=== PATIENT | male | born 1985 | race Caucasian/White ===

== ENCOUNTER 2018-06-29 09:33 | Observation (INO) ==
--- NOTE | 2018-06-29 10:03 | Emergency Department Note ---
Disposition Clinical Impression: Cellulitis of right foot Uncontrolled diabetes mellitus Qualifiers: Diabetes mellitus type: type 2 Glycemic state: with hyperglycemia Qualified Code(s): E11.65 - Type 2 diabetes mellitus with hyperglycemia Disposition: Admitted As Inpatient Condition: Fair Time of Disposition: 17:34 Wound/Laceration HPI - General Chief Complaint: ED Wound/Laceration Stated Complaint: open wound on Toe PCP sent Time Seen by Provider: 06/29/18 09:37 Source: patient Limitations: no limitations Nursing Notes Reviewed: Yes Vital Signs Reviewed: Yes - History of Present Illness HPI Narrative: 33-year-old male past medical history of type 2 diabetes currently on metformin and Lyrica presenting for a 2 day history of right great toe swelling with ulceration. Patient states that he noticed over the weekend that his right great toe appeared to be swollen and woke up the next morning with ulcer formation to the lateral aspect of the digit. Patient states that the swelling has increased and spread along the medial aspect of his foot and up his ankle into his crowe area. Patient then following up with outpatient PCP who sent the patient into the ED this morning for further evaluation. Patient is currently not on any antibiotics at this time. Patient states that he declines any pain medication beyond ibuprofen at this time. Patient admits to fever/chills for the past 2 days and states that he has had some shortness of breath associated with his pain but has no other concerns or complaints at this time. - Related Data Home Medications Medication Instructions Recorded Confirmed Pregabalin [Lyrica] 150 mg PO BID 12/28/17 06/29/18 Metformin HCl 500 mg PO BID 06/29/18 06/29/18 Ranitidine HCl [Acid Assembler Handbags] 150 mg PO BID 06/29/18 06/29/18 Allergies Allergy/AdvReac Type Severity Reaction Status Date / Time cephalexin [From Keflex] Allergy Hives Verified 06/29/18 12:21 Review of Systems: Constitutional: Admits to fever, chills Cardiovascular: Denies: chest pain Respiratory: Denies: dyspnea Gastrointestinal: Denies: abdominal pain, nausea, vomiting, Musculoskeletal: Denies: back pain, neck pain Neurological: Patient admits to chronic numbness and paresthesias in bilateral lower extremities due to diabetic neuropathy. Denies: headache, weakness Endocrine: Denies: fatigue All systems ED: reviewed and negative except as stated. Review of Systems: As Per HPI Past Medical History - Past Medical History Medical history: Reports: diabetes Surgical history: Reports: no surgical history Psychiatric history: Reports: anxiety - Social History Smoking Status: Never smoker Smokeless Tobacco Status: Yes Alcohol use: Reports: occasionally Drug use: Reports: none Physical Exam Constitutional: No acute distress, [id number], engaged to conversation, speech is fluid, answers questions appropriately Neuro: GCS 15, no overt focal neurological deficits Head: Atraumatic, normocephalic Eyes: Pupils equal, round and reactive to light, no scleral icterus, no conjunctival injection Neck: Trachea midline without deviation. Anterior neck is supple without swelling. *Chest: Symmetric chest wall rise *Heart: Cardiac rhythm and rate are regular with S1 and S2 , no S3 or S4 appreciated, no murmurs, gallops, rubs, or clicks. *Lungs: Lungs are clear to auscultation bilaterally, without accessory muscle use or prolonged expiratory phase. No wheezes, rhonchi or stridor appreciated. Abdomen: Abdomen is flat, soft to palpation, normal bowel sounds. No abdominal bruit auscultated. Non-distended, non-rigid, no organomegaly, no ascites appreciated. No pulsatile mass, no tenderness or guarding to palpation in all four quadrants, no rebound Extremities: Normal capillary refill without evidence of pedal edema, joint swelling or erythema. Pulses/motor/sensory intact in all 4 extremities. Psychiatric exam: Patient displays a normal affect and mood for the environment. No overt signs of hallucination. Integumentary: Patient's right great toe exhibits ulceration approximately 3 mm wide by 2 cm long going through the dermal and epidermal layers. There is noted transudate of the wound, wound culture has been sent along with anaerobic culture. There is erythema to the entirety of the right great toe which is spreading along the medial border of the foot to the medial malleoli to the ankle. Patient has 3+ pitting edema upon the medial aspect of his foot. Patient's area of erythema is exquisitely tender to palpation. - General Limitations: no limitations General appearance: alert, in no apparent distress Course Course Narrative: CBC, BMP Wound culture, anaerobic culture Blood culture lactate CT scan of the right foot with contrast Ibuprofen as per patient's request for the management of pain or discomfort. We will begin vancomycin and Zosyn here in the ED Patient will require admission to the hospital for IV antibiotic coverage Patient verbalizes his understanding and agreement with this plan. Vital Signs Temperature 98.3 F 06/29/18 09:41 Pulse Rate 101 06/29/18 09:41 Respiratory Rate 15 06/29/18 09:41 Blood Pressure 147/89 06/29/18 09:41 O2 Sat by Pulse Oximetry 100 06/29/18 09:41 Temperature 98.2 F 06/29/18 15:45 Pulse Rate 79 06/29/18 15:45 Respiratory Rate 16 06/29/18 15:45 Blood Pressure 125/80 06/29/18 15:45 O2 Sat by Pulse Oximetry 98 06/29/18 15:45 Oxygen Delivery Oxygen Delivery Room Air Wound/Laceration - MDM Narrative Medical decision making narrative: Patient laboratory, imaging negative for acute pathology Patient with hyperglycemia in ED given IV fluids and insulin Patient admitted hospitalist medicine service for further evaluation and management of cellulitis requiring IV antibiotics in the setting of diabetes with poor wound healing. Patient verbalizes understanding and agreement with this plan. Dr. Vaughn accepting. - Lab Data Lab results reviewed: Yes I reviewed the patient's lab results. Result diagrams: 06/30/18 04:44 06/29/18 10:36 Lab Results 06/29/18 06/29/18 06/29/18 Range/Units 10:31 10:31 10:36 WBC 12.5 H (4.3-11.1) K/mcL RBC 5.01 (4.19-5.50) M/mcL Hgb 15.1 (12.9-16.9) g/dL Hct 44.0 (37.5-50.1) % MCV 87.8 (83.0-100.0) fL MCH 30.1 (28.0-33.3) pg MCHC 34.3 (31.6-35.5) g/dL RDW 11.5 (11.5-14.5) % Plt Count 220 (140-400) K/mcL MPV 10.6 (9.4-12.4) fL Immature Gran % 0.4 (0-4) % Seg Neutrophils % 77.4 % Lymphocytes % 13.6 % Monocytes % 7.8 % Eosinophils % 0.5 % Basophils % 0.3 % Neutrophils # 9.7 H (1.6-8.9) K/mcL Lymphocytes # 1.7 (0.6-4.6) K/mcL Monocytes # 1.0 (0.0-1.3) K/mcL Eosinophils # 0.1 (0.0-0.6) K/mcL Basophils # 0.0 (0.0-0.2) K/mcL Sodium (136-145) mEq/L Potassium (3.5-5.1) mEq/L Chloride (98-107) mEq/L Carbon Dioxide (23-29) mEq/L BUN (6-20) mg/dL Creatinine (0.70-1.30) mg/dL Est GFR ( Amer) (> 60) Est GFR (Non-Af Amer) (> 60) BUN/Creatinine Ratio (6-26) Glucose (70-105) mg/dL Est Mean Plasma Glucose 298 mg/dl Hemoglobin A1c 12.0 H ( - 5.6) % Calculated Osmolality (280-300) Lactic Acid 1.3 (0.5-2.2) mmol/L Calcium (8.6-10.3) mg/dL 06/29/18 Range/Units 10:36 WBC (4.3-11.1) K/mcL RBC (4.19-5.50) M/mcL Hgb (12.9-16.9) g/dL Hct (37.5-50.1) % MCV (83.0-100.0) fL MCH (28.0-33.3) pg MCHC (31.6-35.5) g/dL RDW (11.5-14.5) % Plt Count (140-400) K/mcL MPV (9.4-12.4) fL Immature Gran % (0-4) % Seg Neutrophils % % Lymphocytes % % Monocytes % % Eosinophils % % Basophils % % Neutrophils # (1.6-8.9) K/mcL Lymphocytes # (0.6-4.6) K/mcL Monocytes # (0.0-1.3) K/mcL Eosinophils # (0.0-0.6) K/mcL Basophils # (0.0-0.2) K/mcL Sodium 135 L (136-145) mEq/L Potassium 3.8 (3.5-5.1) mEq/L Chloride 98 (98-107) mEq/L Carbon Dioxide 28 (23-29) mEq/L BUN 11 (6-20) mg/dL Creatinine 0.88 (0.70-1.30) mg/dL Est GFR ( Amer) > 60 (> 60) Est GFR (Non-Af Amer) > 60 (> 60) BUN/Creatinine Ratio 13 (6-26) Glucose 406 H (70-105) mg/dL Est Mean Plasma Glucose mg/dl Hemoglobin A1c ( - 5.6) % Calculated Osmolality 296 (280-300) Lactic Acid (0.5-2.2) mmol/L Calcium 9.4 (8.6-10.3) mg/dL - Radiology Data Radiology results reviewed: Yes I reviewed the patient's radiology results. Lower Extremity CT 06/29/18 09:55 IMPRESSION: Open skin wound with soft tissue swelling/induration of the medial plantar aspect of the 1st digit without osseous changes. D/ / Michael Sanchez / Michael Sanchez Interpreting Provider: Michael Sanchez
[2018-06-29] MEDS ORDERED: Piperacillin/Tazobactam 3.375 GM in 0.9 % Sodium Chloride Mini Bag 100 ML IVPB ONE (10:08)
[2018-06-29] MEDS ORDERED: Ibuprofen 600 MG TABLET PO ONE (10:14)
--- NOTE | 2018-06-29 10:25 | Emergency Department Note ---
Disposition Clinical Impression: Cellulitis of right foot Uncontrolled diabetes mellitus Qualifiers: Diabetes mellitus type: type 2 Glycemic state: with hyperglycemia Qualified Code(s): E11.65 - Type 2 diabetes mellitus with hyperglycemia Disposition: Admitted As Inpatient Condition: Fair Time of Disposition: 13:32 General Adult HPI - General Chief complaint: ED Wound/Laceration Stated complaint: open wound on Toe PCP sent Time Seen by Provider: 06/29/18 09:37 Source: patient Limitations: no limitations - History of Present Illness Pain Scale: 9 - Related Data Home Medications Medication Instructions Recorded Confirmed Pregabalin [Lyrica] 150 mg PO BID 12/28/17 06/29/18 Metformin HCl 500 mg PO BID 06/29/18 06/29/18 Ranitidine HCl [Acid Equipment Engineer] 150 mg PO BID 06/29/18 06/29/18 Allergies Allergy/AdvReac Type Severity Reaction Status Date / Time cephalexin [From Keflex] Allergy Hives Verified 06/29/18 12:21 Past Medical History - Past Medical History Medical history: Reports: diabetes Surgical history: Reports: no surgical history Psychiatric history: Reports: anxiety - Social History Smoking Status: Never smoker Smokeless Tobacco Status: Yes Alcohol use: Reports: occasionally Drug use: Reports: none Physical Exam - General Limitations: no limitations General appearance: alert, in no apparent distress Course Vital Signs Temperature 98.3 F 06/29/18 09:41 Pulse Rate 101 06/29/18 09:41 Respiratory Rate 15 06/29/18 09:41 Blood Pressure 147/89 06/29/18 09:41 O2 Sat by Pulse Oximetry 100 06/29/18 09:41 Temperature 98.3 F 06/29/18 09:41 Pulse Rate 86 06/29/18 13:46 Respiratory Rate 18 06/29/18 12:46 Blood Pressure 136/82 06/29/18 13:46 O2 Sat by Pulse Oximetry 99 06/29/18 13:46 Oxygen Delivery Oxygen Delivery Room Air Medical Decision Making - Lab Data Result diagrams: 06/29/18 10:36 06/29/18 10:36 Lab Results 06/29/18 06/29/18 06/29/18 Range/Units 10:31 10:36 10:36 WBC 12.5 H (4.3-11.1) K/mcL RBC 5.01 (4.19-5.50) M/mcL Hgb 15.1 (12.9-16.9) g/dL Hct 44.0 (37.5-50.1) % MCV 87.8 (83.0-100.0) fL MCH 30.1 (28.0-33.3) pg MCHC 34.3 (31.6-35.5) g/dL RDW 11.5 (11.5-14.5) % Plt Count 220 (140-400) K/mcL MPV 10.6 (9.4-12.4) fL Immature Gran % 0.4 (0-4) % Seg Neutrophils % 77.4 % Lymphocytes % 13.6 % Monocytes % 7.8 % Eosinophils % 0.5 % Basophils % 0.3 % Neutrophils # 9.7 H (1.6-8.9) K/mcL Lymphocytes # 1.7 (0.6-4.6) K/mcL Monocytes # 1.0 (0.0-1.3) K/mcL Eosinophils # 0.1 (0.0-0.6) K/mcL Basophils # 0.0 (0.0-0.2) K/mcL Sodium 135 L (136-145) mEq/L Potassium 3.8 (3.5-5.1) mEq/L Chloride 98 (98-107) mEq/L Carbon Dioxide 28 (23-29) mEq/L BUN 11 (6-20) mg/dL Creatinine 0.88 (0.70-1.30) mg/dL Est GFR ( Amer) > 60 (> 60) Est GFR (Non-Af Amer) > 60 (> 60) BUN/Creatinine Ratio 13 (6-26) Glucose 406 H (70-105) mg/dL Calculated Osmolality 296 (280-300) Lactic Acid 1.3 (0.5-2.2) mmol/L Calcium 9.4 (8.6-10.3) mg/dL Attestation Statement - Attestation Attestation: I examined this patient and my medical decision-making was reviewed with the Resident Physician. I agree with the documented findings, disposition and treatment plan as described except to the extent set forth below. Patient presents to the ED with a chief complaint of a foot wound. Onset 2 days ago. Patient is an uncontrolled diabetic who is had a wound on his foot. It is increased a painful red and swollen and his primary physician sent him in for evaluation. On examination he has not open wound on the medial aspect of the right great toe. No drainage. Erythema extending into his crowe. Plan. Basic labs and CT. CT reviewed. No gas. No osteomyelitis. Is given IV antibiotics. His blood sugar still elevated after IV insulin. We will give him another dose. Accepted to medicine. Lower Extremity CT 06/29/18 09:55 IMPRESSION: Open skin wound with soft tissue swelling/induration of the medial plantar aspect of the 1st digit without osseous changes. D/ / Michael Sanchez / Michael Sanchez Interpreting Provider: Michael Sanchez
[2018-06-29 11:08] LABS: BUN/Creatinine Ratio 13 (6-26); Blood Urea Nitrogen 11 mg/dL (6-20); Calcium 9.4 mg/dL (8.6-10.3); Carbon Dioxide 28 mEq/L (23-29); Chloride 98 mEq/L (98-107); Glucose 406 mg/dL (70-105); Osmolality,Calculated 296 (280-300); Potassium 3.8 mEq/L (3.5-5.1); Sodium 135 mEq/L (136-145); eGFR For Non-African Americans > 60 (> 60)
[2018-06-29] MEDS ORDERED: 0.9 % Sodium Chloride 1,000 ML IVC ONE (11:12)
[2018-06-29] MEDS ORDERED: Insulin LISPRO 300 UNITS/3 ML VIAL SQ STA (11:13)
[2018-06-29 11:27] LABS: Basophils % 0.3 %; Eosinophils # 0.1 K/mcL (0.0-0.6); Eosinophils % 0.5 %; Hemoglobin 15.1 g/dL (12.9-16.9); Immature Granulocytes % 0.4 % (0-4); Lymphocytes # 1.7 K/mcL (0.6-4.6); Lymphocytes % 13.6 %; Mean Corpuscular HGB Conc 34.3 g/dL (31.6-35.5); Mean Corpuscular Hemoglobin 30.1 pg (28.0-33.3); Mean Corpuscular Volume 87.8 fL (83.0-100.0); Mean Platelet Volume 10.6 fL (9.4-12.4); Monocytes % 7.8 %; Neutrophils # 9.7 K/mcL (1.6-8.9); Platelet Count 220 K/mcL (140-400); Red Blood Count 5.01 M/mcL (4.19-5.50); Red Cell Distribution Width 11.5 % (11.5-14.5); Segmented Neutrophils % 77.4 %
[2018-06-29] MEDS ORDERED: Isovue-370 500 ML BOTTLE IVP ONE (12:09)
[2018-06-29] MEDS ORDERED: Insulin Human Regular 5 UNIT in 0.9 % Sodium Chloride 10 ML IV ONE (13:24)
[2018-06-29] MEDS ORDERED: Naloxone 0.4 MG/ML INJ IVP PRN (14:13)
[2018-06-29] MEDS ORDERED: Ondansetron 4 MG/2 ML VIAL IVP PRN (14:13)
[2018-06-29] MEDS ORDERED: *HR* Dextrose 50 % in Water (Syg) 50 ML SYRINGE IVP PRN (14:43)
[2018-06-29] MEDS ORDERED: Dextrose Gel 15 GM/37.5 ML TUBE PO PRN ×2 (14:43)
[2018-06-29] MEDS ORDERED: D5% in Water 1,000 ML IVC PRN (14:43)
--- NOTE | 2018-06-29 14:51 | Internal Med History&Physical ---
Date of Encounter: 06/29/18 Time of Encounter: 14:47 Internal Medicine - H&P: HPI Chief complaint: Rt great toe wound Admitted From: Emergency Dept Plans for Post Hospital Care: Home History of present illness: Mr. Alejandre is a 33 year old male with known PMH of DM2 pt presented to ER with worsening Rt great toe wound. Pt stated he does have chronic open wound over Rt great toe plantar region, now 2 weeks ago he developed small pimple like growth on dorsal side of rt great toe which seems to be worsening now. Also he noticed his plantar side wound also worsening and extended to dorsal wound area. He does have worsening pain in Rt great toe associated with some swelling and erythema. In the ER his CT of Rt foot showed Open skin wound with soft tissue swelling / induration of the medial plantar aspect of the 1st digit without osseous changes. He denied any trauma to his foot. Past Med Surg Social Fam HX - Past Medical History Medical history: diabetes Additional medical history: DM Type 2 Psychiatric history: anxiety - Past Surgical History Surgical History: tonsillectomy, vasectomy - Social History Smoking Status: Never smoker Smokeless Tobacco Status: Yes (One can/day) Alcohol use: rarely Drug use: none - Additional Family History Additional family history: Family hsitory reviewed and non contribuitory to current problem. Internal Medicine - H&P: Meds Pregabalin [Lyrica] 150 mg PO BID 12/28/17 [History] Metformin HCl 500 mg PO BID 06/29/18 [History] Ranitidine HCl [Acid Customer Advocacy Manager] 150 mg PO BID 06/29/18 [History] Allergy/AdvReac Type Severity Reaction Status Date / Time cephalexin [From Keflex] Allergy Hives Verified 06/29/18 12:21 All Systems PM: A 10-system review of systems was performed and is negative for pertinent findings except as documented above in the HPI. Review of systems: All the systems are reviewed everything is benign except the systems and symptoms I mentioned in the history of present illness - Constitutional Vitals: Temp Pulse Resp BP Pulse Ox 98.3 F 86 18 131/86 99 06/29/18 09:41 06/29/18 13:46 06/29/18 12:46 06/29/18 14:09 06/29/18 13:46 General appearance: Present: cooperative, A&O X 3, no acute distress, answers questions appropriately Exam: a - Head Head exam: Present: atraumatic, normal inspection - Neck Neck exam general surgery: Present: supple - Respiratory Respiratory exam: Present: decreased breath sounds. Absent: rales, respiratory distress, rhonchi, wheezes - Cardiovascular Cardiovascular exam: Present: RRR, +S1, +S2. Absent: tachycardia - GI/Abdominal GI/Abdominal exam: Present: normal bowel sounds, soft. Absent: rebound, rigid, tenderness - Extremities Exam Extremities exam: Present: tenderness (Rt great toe area). Absent: calf tenderness, pedal edema Additional comments: He does have moderate swelling and erythema over Rt great toe area. He has small open ulcer over plantar region and dorsal region. Also noticed some loculated collection medial side of the toe. - Back Exam Back exam: Absent: CVA tenderness (L), CVA tenderness (R) - Neurological Exam Neurological exam: Present: alert, oriented X3 - Psychiatric Psychiatric exam: Present: normal affect, normal mood - Skin Skin exam: Present: rash (Rt great toe erythema) Internal Med - H&P Results - Labs CBC & Chem 7: 06/29/18 10:36 06/29/18 10:36 Labs: Short CBC 06/29/18 Range/Units 10:36 WBC 12.5 H (4.3-11.1) K/mcL Hgb 15.1 (12.9-16.9) g/dL Hct 44.0 (37.5-50.1) % Plt Count 220 (140-400) K/mcL Neutrophils # 9.7 H (1.6-8.9) K/mcL BMP 06/29/18 10:36 Sodium 135 L Potassium 3.8 Chloride 98 Carbon Dioxide 28 BUN 11 Creatinine 0.88 Glucose 406 H Calcium 9.4 - Impressions ITS Impressions Lower Extremity CT 06/29/18 09:55 IMPRESSION: Open skin wound with soft tissue swelling/induration of the medial plantar aspect of the 1st digit without osseous changes. D/ / Michael Sanchez / Michael Sanchez Interpreting Provider: Michael Sanchez - Assessment and Plan (1) Cellulitis of right foot Current Visit: Yes Status: Acute Assessment and plan: Place the pt into med surg for observation He did not take any abx as an out pt Reviewed his CT of Rt foot physical exam concerning for possible abscess, he may get benefit with I & D Consulted podiatry for further eval Blood cx and wound cx were done in the ER started him on empirical abx Zosyn and Vanc Deescalate abx depending on wound cx continue symptomatic and supportive care (2) DM type 2 (diabetes mellitus, type 2) Current Visit: No Status: Chronic Assessment and plan: Uncontrolled blood sugars Will check HbA1C on ISS medium ADA diet Qualifiers: Diabetes mellitus termite inspector insulin use: without termite inspector use Diabetes mellitus complication status: without complication Qualified Code(s): E11.9 - Type 2 diabetes mellitus without complications - Time Spent With Patient Total time spent is greater than 50% in coordination of care (as documented) at patient's floor/unit and/or counseling patient:
[2018-06-29 15:23] LABS: Estimated Average Glucose 298 mg/dl
[2018-06-29] MEDS: *HR* HYDROcodone/Acet 5/325 mg TABLET PO PRN ×2 (15:45→22:34)
--- NOTE | 2018-06-29 15:57 | Podiatry Consult Note ---
Date of Encounter: 06/30/18 Time of Encounter: 15:00 Assessment and Plan (1) Ulcer of right second toe with fat layer exposed Current visit: Yes Status: Acute Assessment: -Espinal stage III ulcer right great hallux with erythema and edema 1/4, edema does extend to lower left extremity -2/4 PT/DP pulse, cap refill less than 3 seconds -WBC 12.5 -Right foot CT showed evidence of open skin wound with soft tissue swelling/induration of the medial plantar aspect of the 1st digit without osseous changes Plan: -Site cleaned with alcohol x 3 -Sharp surgical excisional debridement of all non-viable tissue right great hallux with #15 blade into subcutaneous tissue measuring 5.1 x 1.7. No undermining or tunneling noted. No abscess noted. Granular and fibrin tissue noted at wound base. Wound thoroughly irrigate with sterile saline. Site painted with betadine and dry sterile dressing applied using 4x4, Kerlix, and secured with medipore. -ESR, CRP -Discussed with patient that we would observe the site tomorrow and further treatment will depend on how the area looks tomorrow. -Possibility for treatment include surgical I&D, possible partial and/or amputation of right great hallux, and jail IV antibiotics -Recommend ID, any antibiotic recommendation greatly appreciated -Will continue to monitor (2) DM type 2 (diabetes mellitus, type 2) Current visit: No Status: Chronic Assessment: -Blood sugar 406 -Hgb A1c 12.0 Plan: -Tight glycemic control to prevent further complication and promote wound healing - primary managing Qualifiers: Diabetes mellitus buttermaker continuous churn insulin use: without buttermaker continuous churn use Diabetes mellitus complication status: without complication Qualified Code(s): E11.9 - Type 2 diabetes mellitus without complications History of Present Illness HPI: Mr. Alejandre is a 33 year old male who presented to the Emergency Room (ER) today with complaints of redness, swelling, and pain to right great toe with ulcer. Patient does have a past medical history of diabetes. Patient reports he had a callus to the right great toe and on Wednesday it was causing him a lot of pain. He states he pulled part of the callus off and it did relieve some of the pressure. Patient reports Wednesday the pain started again and he noticed his toe was red, black, and blue. He states yesterday his toes started swelling and swelling started going up into his leg and he reports fever, unknown temperature, and chills. Upon admission to ER he was afebrile and has remained afebrile. A CBC in the ER showed a WBC of 12.5. Hgb A1c 12.0. A CT of the right foot showed evidence of open skin wound with soft tissue swelling/induration of the medial plantar aspect of the 1st digit without osseous changes. Patient denies any chest pain, shortness of breath, calf pain, n/v/d. He only requested Ibuprofen for pain and rates his pain as a 9. Patient does report he chews tobacco, rarely using alcohol, and denies illicit drug use. He was admitted for further evaluation and started on IV Zosyn and vancomycin. Past Med Surg Social Fam HX - Past Medical History Medical history: diabetes Additional medical history: DM Type 2 Psychiatric history: anxiety - Past Surgical History Surgical History: tonsillectomy, vasectomy - Social History Smoking Status: Never smoker Smokeless Tobacco Status: Yes (One can/day) Alcohol use: rarely Drug use: none Medications and Allergies Pregabalin [Lyrica] 150 mg PO BID 12/28/17 [History] Metformin HCl 500 mg PO BID 06/29/18 [History] Ranitidine HCl [Acid Press Worker Helper] 150 mg PO BID 06/29/18 [History] Allergy/AdvReac Type Severity Reaction Status Date / Time cephalexin [From Keflex] Allergy Hives Verified 06/29/18 12:21 All Systems Reviewed: The remainder of the systems were reviewed and are negative Review of systems: As per HPI - Constitutional Constitutional: fever(s) - Cardiovascular Cardiovascular: no chest pain - Respiratory Respiratory: no dyspnea Physical Exam - Constitutional Vitals: Temp Pulse Resp BP Pulse Ox 98.2 F 79 16 125/80 98 06/29/18 15:45 06/29/18 15:45 06/29/18 15:45 06/29/18 15:45 06/29/18 15:45 Exam: Constitutional: Alert and oriented x 3, no acute distress, well nourished Vascular: 2/4 PT/DP pulses, cap refill less than 3 seconds to all digits, no pain with calf squeeze, skin warm from tibia to toes Neurological: Absent protective sensation, abnormal proprioception, normal plantar reflex Dermatological: Wagnet stage III ulcer noted right hallux more plantar and medical aspect, erythema noted, fluctuance noted medial aspect, serosanguineous drainage noted. Fibrin tissue noted to wound base medial aspect, otherwise wound base pink and wound edges with non-viable tissue. Edema noted 1/4 exte nding up into lower extremity. Musculoskeletal: 06/12 muscle strength, normal tone Results - Labs Result Diagrams: 06/30/18 04:44 06/29/18 10:36 Labs: Abnormal lab results WBC 12.5 K/mcL (4.3-11.1) H 06/29/18 10:36 9.7 K/mcL (1.6-8.9) H 06/29/18 10:36 Sodium 135 mEq/L (136-145) L 06/29/18 10:36 Glucose 406 mg/dL (70-105) H 06/29/18 10:36 12.0 % (-5.6) H 06/29/18 10:31 H & H 06/29/18 Range/Units 10:36 Hgb 15.1 (12.9-16.9) g/dL Hct 44.0 (37.5-50.1) % All other labs normal. Consult Discharge Plan - Plan Referrals: Carole Patten, PHOTOVOLTAIC SOLAR CELL DESIGNER [Primary Care Provider] -
[2018-06-29] MEDS: Piperacillin/Tazobactam 3.375 GM in 0.9 % Sodium Chloride Mini Bag 100 ML IVPB SCH (18:05)
[2018-06-29] MEDS: Insulin LISPRO 300 UNITS/3 ML VIAL SQ SCH ×2 (18:05→21:00)
[2018-06-30] MEDS: Piperacillin/Tazobactam 3.375 GM in 0.9 % Sodium Chloride Mini Bag 100 ML IVPB SCH ×3 (00:03→16:46)
[2018-06-30] MEDS: *HR* HYDROcodone/Acet 5/325 mg TABLET PO PRN (04:43)
[2018-06-30 05:02] LABS: Basophils % 0.4 %; Eosinophils # 0.2 K/mcL (0.0-0.6); Eosinophils % 1.5 %; Hematocrit 40.4 % (37.5-50.1); Hemoglobin 13.9 g/dL (12.9-16.9); Immature Granulocytes % 0.3 % (0-4); Lymphocytes # 2.6 K/mcL (0.6-4.6); Lymphocytes % 26.6 %; Mean Corpuscular HGB Conc 34.4 g/dL (31.6-35.5); Mean Corpuscular Hemoglobin 30.5 pg (28.0-33.3); Mean Corpuscular Volume 88.6 fL (83.0-100.0); Mean Platelet Volume 10.3 fL (9.4-12.4); Monocytes # 0.8 K/mcL (0.0-1.3); Neutrophils # 6.2 K/mcL (1.6-8.9); Platelet Count 212 K/mcL (140-400); Red Blood Count 4.56 M/mcL (4.19-5.50); Red Cell Distribution Width 11.5 % (11.5-14.5); Segmented Neutrophils % 63.2 %
[2018-06-30] MEDS: Insulin LISPRO 300 UNITS/3 ML VIAL SQ SCH ×5 (08:43→20:19)
[2018-06-30] MEDS: Insulin DETEMIR 100 UNIT/ML X5UNITS SQ SCH ×2 (08:44→20:20)
[2018-06-30] MEDS ORDERED: *HR* HYDROcodone/Acet 7.5/325 mg TABLET PO PRN (09:15)
--- NOTE | 2018-06-30 09:17 | Internal Med Progress Note ---
Hospitalist Progress Note - Encounter Date of Encounter: 06/30/18 Time of Encounter: 08:30 - Subjective Interval History: Mr. Alejandre is a 33 year old male with known PMH of DM2 pt presented to ER with worsening Rt great toe wound. Pt stated he does have chronic open wound over Rt great toe plantar region, now 2 weeks ago he developed small pimple like growth on dorsal side of rt great toe which seems to be worsening now. Also he noticed his plantar side wound also worsening and extended to dorsal wound area. He does have worsening pain in Rt great toe associated with some swelling and erythema. In the ER his CT of Rt foot showed Open skin wound with soft tissue swelling / induration of the medial plantar aspect of the 1st digit without osseous changes. He denied any trauma to his foot. He had I & D of Rt great toe y/d. He still has moderate erythema and tenderness in Rt great toe. Over all feels little better today. - Exam Vitals: Temp Pulse Resp BP Pulse Ox 98.1 F 90 15 135/81 97 06/30/18 06:56 06/30/18 06:56 06/30/18 06:56 06/30/18 06:56 06/30/18 06:56 Exam: Gen: Alert, awake, Oriented to time,place and person Chest: Diminished breath sounds B/L, No wheezing, No crackles, No rales Heart: S1S2+ RRR No murmurs Abd: Soft, NT, BS +, No organomegaly Ext:s/p I & D. Improving swelling and erythema over Rt great toe area. pulses are palpable, No calf tenderness Neuro : Benign findings Skin: No rash. - Assessment and Plan (1) Cellulitis of right foot Current Visit: Yes Status: Acute Assessment and Plan: Blood cx - no growth so far wound cx - p Cont empirical abx Zosyn and vanc Appreciate podiatry recommendations Inc pain med [place] to 7.5mg (2) DM type 2 (diabetes mellitus, type 2) Current Visit: No Status: Chronic Assessment and Plan: Uncontrolled blood sugars HbA1C 12.0 Need Insulin coverage at home on ISS medium + Added Levemir ADA diet counseled the pt about BS control (3) Peripheral neuropathy Current Visit: Yes Status: Chronic Assessment and Plan: resumed home med Lyrica - Time Spent with Patient Total time spent is greater than 50% in coordination of care (as documented) at patient's floor/unit and/or counseling patient: Internal Medicine: Result - Labs CBC & Chem 7: 06/30/18 04:44 06/29/18 10:36 Labs: Short CBC 06/29/18 06/30/18 Range/Units 10:36 04:44 WBC 12.5 H 9.8 (4.3-11.1) K/mcL Hgb 15.1 13.9 (12.9-16.9) g/dL Hct 44.0 40.4 (37.5-50.1) % Plt Count 220 212 (140-400) K/mcL Neutrophils # 9.7 H 6.2 (1.6-8.9) K/mcL BMP 06/29/18 10:36 Sodium 135 L Potassium 3.8 Chloride 98 Carbon Dioxide 28 BUN 11 Creatinine 0.88 Glucose 406 H Calcium 9.4 - Impressions Impressions Lower Extremity CT 06/29/18 09:55 IMPRESSION: Open skin wound with soft tissue swelling/induration of the medial plantar aspect of the 1st digit without osseous changes. D/ / Michael Sanchez / Michael Sanchez Interpreting Provider: Michael Sanchez Consult Discharge Plan - Plan Referrals: Carole Patten, HEALTH ASSESSMENT AND TREATMENT TEACHER [Primary Care Provider] - (2) DM type 2 (diabetes mellitus, type 2) Qualifiers: Diabetes mellitus adjunct faculty for medical terminology insulin use: without shelter use Diabetes mellitus complication status: without complication Qualified Code(s): E11.9 - Type 2 diabetes mellitus without complications (3) Peripheral neuropathy Qualifiers: Peripheral neuropathy type: polyneuropathy associated with underlying disease Qualified Code(s): G63 - Polyneuropathy in diseases classified elsewhere
[2018-06-30] MEDS ORDERED: Aminoglycoside Consult 1 EACH MC ONE (11:14)
[2018-06-30] MEDS: Pregabalin 75 MG CAPSULE PO SCH ×2 (13:13→20:19)
[2018-06-30] MEDS: Famotidine 20 MG TABLET PO SCH (13:13)
--- NOTE | 2018-06-30 13:40 | Podiatry Progress Note ---
Date of Encounter: 06/30/18 Time of Encounter: 11:15 - Assessment and Plan (1) Ulcer of right second toe with fat layer exposed Current Visit: Yes Status: Acute Assessment: -Espinal stage III ulcer right great hallux with erythema and edema that are improving, 1/4 edema does extend to lower left extremity -2/4 PT/DP pulse, cap refill less than 3 seconds -WBC 9.8 -ESR 21, CRP 145 -Right foot CT showed evidence of open skin wound with soft tissue swell ing/induration of the medial plantar aspect of the 1st digit without osseous changes -Blood cultures x 2 pending -Wound cultures pending -Receiving IV Zosyn and Vancomycin Plan: -Flushed site thoroughly with sterile saline -Site painted with betadine and dry sterile dressing applied using 4x4, Kerlix, and secured with medipore tape. -Spoke with Dr. Hanley concerning plan of care and at this time we will continue to monitor and treat with dressing changes and IV antibiotics . -Possibility for treatment include surgical I&D, possible amputation of right hallux, and senior living IV antibiotic -Heel weight bearing RLE -Will continue to monitor (2) DM type 2 (diabetes mellitus, type 2) Current Visit: No Status: Chronic Assessment: -POC glucose 185 -Hgb A1c 12.0 Plan: -Tight glycemic control to prevent further complication and promote wound healing - primary managing Qualifiers: Diabetes mellitus senior living insulin use: without long line teamster use Diabetes mellitus complication status: without complication Qualified Code(s): E11.9 - Type 2 diabetes mellitus without complications Subjective Interval history: Patient is alert and oriented, no acute distress noted, well-nourished. He denies any chest pain, shortness of breath, or calf pain. He denies any nausea vomiting diarrhea fever or chills. Patient states he is ready to go home. No acute events overnight. Objective - Vital Signs Vital Signs: Vital Signs Temp Pulse Resp BP Pulse Ox 06/30/18 11:02 98.3 F 87 15 124/77 98 06/30/18 06:56 98.1 F 90 15 135/81 97 06/30/18 03:54 98.1 F 86 16 137/90 98 06/30/18 00:05 98.3 F 82 16 150/93 99 06/29/18 19:59 97.9 F 83 17 146/90 98 06/29/18 15:45 98.2 F 79 16 125/80 98 06/29/18 14:09 131/86 06/29/18 13:46 86 136/82 99 Intake and Output 06/29/18 06/30/18 06/30/18 23:59 07:59 15:59 Intake Total 100 / 1710.05 350 / 1000 650 / 1000 Balance 100 / 1710.05 350 / 1000 650 / 1000 Intake: IV Fluids 100 / 1710.05 350 / 700 350 / 700 Zosyn 3.375 GM In 0.9 % Sodium 100 / 100 100 / 200 100 / 200 Chloride (Mini-Bag +) 100 ML @ 25 mls/hr IVPB Q8HR [facility] Rx#: [id number] Vancocin 1,500 MG In 0.9 % 250 / 500 250 / 500 Sodium Chloride 250 ML @ 166.67 mls/hr IVPB Q12H [facility] Rx#: [id number] Oral 300 / 300 Other: Meal Dinner Breakfast Percent of Meal Consumed 100% 100% Weight 97.6 kg Blood Glucose* 273 185 262 Patient Weight 06/30/18 23:59 Weight 97.6 kg - Exam Exam: Constitutional: Alert and oriented x 3, no acute distress, well nourished Vascular: 2/4 PT/DP pulses, cap refill less than 3 seconds to all digits, no pain with calf squeeze, skin warm from tibia to toes Neurological: Absent protective sensation, abnormal proprioception, normal plantar reflex Dermatological: Wagnet stage III ulcer noted right hallux more plantar and medical aspect. Erythema noted but improving. Minimal serosanguineous drainage noted. Wound base beefy red with area of darkened eschar noted more medial aspect. Edema noted 1/4 extending up into lower extremity. Musculoskeletal: 5/5 muscle strength, normal tone - Lab Result Diagrams: 06/30/18 04:44 06/29/18 10:36 Labs: Abnormal lab results WBC 12.5 K/mcL (4.3-11.1) H 06/29/18 10:36 9.7 K/mcL (1.6-8.9) H 06/29/18 10:36 ESR 21 mm/hr (0-10) H 06/29/18 17:09 Sodium 135 mEq/L (136-145) L 06/29/18 10:36 Glucose 406 mg/dL (70-105) H 06/29/18 10:36 POC Glucose 262 mg/dL (70-99) H 06/30/18 11:01 12.0 % (-5.6) H 06/29/18 10:31 145 mg/L (Less than 10) H 06/29/18 17:09 Microbiology, Last 48 Hours 06/29/18 10:00 Wound Culture - Preliminary Right Great Toe Culture is incubating. 06/29/18 10:00 Anaerobic Culture - Preliminary Right Great Toe Culture is incubating. 06/29/18 10:36 Blood Culture - Preliminary Peripheral Venipuncture Culture is incubating and being continuously monitored for growth. Final report to follow. 06/29/18 10:36 Blood Culture - Preliminary Peripheral Venipuncture Culture is incubating and being continuously monitored for growth. Final report to follow. Consult Discharge Plan - Plan Referrals: Carole Patten, DUST OPERATOR [Primary Care Provider] -
[2018-06-30] MEDS ORDERED: Ketorolac 15 MG/ML VIAL IVP PRN (18:35)
[2018-07-01] MEDS: Piperacillin/Tazobactam 3.375 GM in 0.9 % Sodium Chloride Mini Bag 100 ML IVPB SCH (00:03)
[2018-07-01] MEDS ORDERED: Acetaminophen 325 MG TABLET PO ONE (00:12)
--- NOTE | 2018-07-01 08:58 | Discharge Summary ---
- NOTES TO OUTPATIENT PROVIDER Notes to Outpatient Provider: f/u with PCP in one week. f/u with Rigging Up Worker in one week. Please continue dressing change as instructed by licensed psychologist. Please start taking insulin Levemir 20 Units SQ BID and Medium Insulin sliding scale as directed. Orders not resulted at time of discharge: Pending orders 06/29/18 10:00 Culture,Anaerobic [RM] Stat 06/29/18 10:36 Culture,Blood [BC] Stat Date of Encounter: 07/01/18 Time of Encounter: 08:56 - Discharge Diagnosis (1) Cellulitis of right foot Priority: Primary Status: Acute (2) DM type 2 (diabetes mellitus, type 2) Priority: Secondary Status: Chronic Qualifiers: Diabetes mellitus senior living insulin use: without senior living use Diabetes mellitus complication status: without complication Qualified Code(s): E11.9 - Type 2 diabetes mellitus without complications (3) Peripheral neuropathy Priority: Secondary Status: Chronic Qualifiers: Peripheral neuropathy type: polyneuropathy associated with underlying disease Qualified Code(s): G63 - Polyneuropathy in diseases classified elsewhere Hospital course: Mr. Alejandre is a 33 year old male with known PMH of DM2 pt presented to ER with worsening Rt great toe wound. Pt stated he does have chronic open wound over Rt great toe plantar region, now 2 weeks ago he developed small pimple like growth on dorsal side of rt great toe which seems to be worsening now. Also he noticed his plantar side wound also worsening and extended to dorsal wound area. He does have worsening pain in Rt great toe associated with some swelling and erythema. In the ER his CT of Rt foot showed Open skin wound with soft tissue swelling / induration of the medial plantar aspect of the 1st digit without osseous changes. He denied any trauma to his foot. He was admitted in the hospital and started him on broad-spectrum antibiotic zosyn and vancomycin. He was evaluated by licensed psychologist and had I & D of Rt great toe at bed side. His wound cx grew Group B strep. His Rt great toe swelling , erythema and pain improving. So will d/c him home in stable condition today with PO abx Augmentin for 2 weeks. He does have uncontrolled blood sugars with hemoglobin A-1 C @ 12.0 so started him on Levemir and medium dose ISS. Provided him rx for insulin. - Time Spent with Patient Total time spent providing and/or coordinating discharge services: - Discharge Medications Prescriptions: New Amoxicillin/Clavulanate [Augmentin] 875 mg PO BIDWM #24 tablet Insulin LISPRO [HumaLOG] 0 units SQ TIDAC #3 vial Insulin DETEMIR [Levemir Flextouch] 25 unit SQ BID #2 insuln.pen Lactobacillus Acidophilus [Acidophilus] 1 each PO BID #30 capsule Continued Ranitidine HCl [Acid Electronic Equipment Installer] 150 mg PO BID Metformin HCl 500 mg PO BID Pregabalin [Lyrica] 150 mg PO BID Home Medications: Pregabalin [Lyrica] 150 mg PO BID 12/28/17 [History] Metformin HCl 500 mg PO BID 06/29/18 [History] Ranitidine HCl [Acid Electronic Equipment Installer] 150 mg PO BID 06/29/18 [History] Amoxicillin/Clavulanate [Augmentin] 875 mg PO BIDWM #24 tablet 07/01/18 [Rx] Insulin DETEMIR [Levemir Flextouch] 25 unit SQ BID #2 insuln.pen 07/01/18 [Rx] Insulin LISPRO [HumaLOG] 0 units SQ TIDAC #3 vial 07/01/18 [Rx] Lactobacillus Acidophilus [Acidophilus] 1 each PO BID #30 capsule 07/01/18 [Rx] Allergies/Adverse Reactions: Allergy/AdvReac Type Severity Reaction Status Date / Time cephalexin [From Keflex] Allergy Hives Verified 06/29/18 12:21 Date of admission: 06/29/18 13:35 Primary care physician: Carole Patten CNP Consults: 06/29/18 14:41 Consult to Cabinet Assembler [CONS] Routine Reason for SW Consult: Patient has foot abscess with new consult to podiatry, which includes possibility of body finisher IV antibiotics 06/29/18 14:46 Consult to Podiatry [CONS] Routine Consulting Provider: [facility] Reason for Consult: Rt great toe ulcer , cellulities and possible abscess Time Notified: 14:46 Call Completed: Yes - Constitutional Vitals: Temp Pulse Resp BP Pulse Ox 98.2 F 86 17 129/84 98 07/01/18 03:20 07/01/18 03:20 07/01/18 03:20 07/01/18 03:20 07/01/18 03:20 General appearance: Present: cooperative, A&O X 3, no acute distress, answers questions appropriately Exam: Gen: Alert, awake, Oriented to time,place and person Chest: Diminished breath sounds B/L, No wheezing, No crackles, No rales Heart: S1S2+ RRR No murmurs Abd: Soft, NT, BS +, No organomegaly Ext:s/p I & D. Improving swelling and erythema over Rt great toe area. pulses are palpable, No calf tenderness Neuro : Benign findings Skin: No rash. - Patient Status Disposition: Home, Self-Care Condition: Good Overall status at discharge: patient is back to baseline - Discharge Instructions Follow Up With: Carole Patten WASHTUB WORKER HELPER [Primary Care Provider] - Leidy Porter CNP [Advanced Practice Nurse] - - Diet and Activity Activity: increase activity as tolerated Diet: low salt diet
--- NOTE | 2018-07-01 09:49 | Podiatry Progress Note ---
Date of Encounter: 07/01/18 Time of Encounter: 09:30 - Assessment and Plan (1) Ulcer of right second toe with fat layer exposed Current Visit: Yes Status: Acute Assessment: -Espinal stage III ulcer noted right hallux more plantar and medical aspect healing. Erythema noted and continues to improve. Minimal serosanguineous drainage noted. -2/4 PT/DP pulse, cap refill less than 3 seconds -WBC no labs today 9.8 06/30/18 -ESR 21, CRP 145 -Right foot CT showed evidence of open skin wound with soft tissue swelling/induration of the medial plantar aspect of the 1st digit without osseous changes -Blood cultures x 2 pending -Wound cultures final Strep agalactiae (Group B) -Receiving IV Zosyn and Vancomycin, being switched to PO Augmentin Plan: -Flushed site thoroughly with sterile saline -Site painted with betadine and dry sterile dressing applied using 4x4, Kerlix, and secured with medipore tape. -Espinal stage III ulcer continues to heal nicely, no need for surgical intervention at this time -Okay to discharge patient on po antibiotics -Dressing changes daily, clean foot with soap and water and pat dry, paint ulcer with betadine and apply dry sterile dressing using 4x4 dry gauze and Kerlix. Secure with medipore tape. -Follow up with Podiatry next week in office, schedule appointment prior to discharge. -Ambulation in short CAM boot -Off work next week (2) DM type 2 (diabetes mellitus, type 2) Current Visit: No Status: Chronic Assessment: -Hgb A1c 12.0 Plan: -Tight glycemic control to prevent further complication and promote wound healing Qualifiers: Diabetes mellitus terminal gauger supervisor insulin use: without [facility] use Diabetes mellitus complication status: without complication Qualified Code(s): E11.9 - Type 2 diabetes mellitus without complications Subjective Interval history: Patient is alert and oriented, no acute distress noted, well-nourished. He denies any chest pain, shortness of breath, or calf pain. He denies any nausea, vomiting, diarrhea, fever, or chills. Patient states he is ready to go home. No acute events overnight. Objective - Vital Signs Vital Signs: Vital Signs Temp Pulse Resp BP Pulse Ox 07/01/18 03:20 98.2 F 86 17 129/84 98 06/30/18 18:44 98.1 F 90 17 139/80 100 06/30/18 16:54 98.1 F 69 15 95/57 95 06/30/18 11:02 98.3 F 87 15 124/77 98 Intake and Output 06/30/18 07/01/18 07/01/18 23:59 07:59 15:59 Intake Total 340 / 1580 Balance 340 / 1580 Intake: IV Fluids 100 / 800 Zosyn 3.375 GM In 0.9 % Sodium 100 / 300 Chloride (Mini-Bag +) 100 ML @ 25 mls/hr IVPB Q8HR [facility] Rx#: [id number] Oral 240 / 780 Other: Meal Dinner Percent of Meal Consumed 100% Blood Glucose* 277 - Exam Exam: Constitutional: Alert and oriented x 3, no acute distress noted, well nourished male Vascular: 2/4 PT/DP pulses, cap refill less than 3 seconds to all digits, no pain with calf squeeze, skin warm from tibia to toes Neurological: Absent protective sensation, abnormal proprioception, normal plantar reflex Dermatological: Espinal stage III ulcer noted right hallux more plantar and medical aspect healing. Erythema noted and continues to improve. Minimal serosanguineous drainage noted. Wound base beefy red with area of darkened eschar noted more medial aspect. Edema improving. Musculoskeletal: 5/5 muscle strength, normal tone - Lab Result Diagrams: 06/30/18 04:44 06/29/18 10:36 Labs: Abnormal lab results WBC 12.5 K/mcL (4.3-11.1) H 06/29/18 10:36 9.7 K/mcL (1.6-8.9) H 06/29/18 10:36 ESR 21 mm/hr (0-10) H 06/29/18 17:09 Sodium 135 mEq/L (136-145) L 06/29/18 10:36 Glucose 406 mg/dL (70-105) H 06/29/18 10:36 POC Glucose 277 mg/dL (70-99) H 06/30/18 20:06 12.0 % (-5.6) H 06/29/18 10:31 145 mg/L (Less than 10) H 06/29/18 17:09 Microbiology, Last 48 Hours 06/29/18 10:00 Wound Culture - Final Right Great Toe Strep agalactiae - (Group B) 06/29/18 10:00 Anaerobic Culture - Preliminary Right Great Toe Culture is incubating. 06/29/18 10:36 Blood Culture - Preliminary Peripheral Venipuncture Culture is incubating and being continuously monitored for growth. Final report to follow. 06/29/18 10:36 Blood Culture - Preliminary Peripheral Venipuncture Culture is incubating and being continuously monitored for growth. Final report to follow. Consult Discharge Plan - Plan Referrals: Carole Patten CNP [Primary Care Provider] - Leidy Porter CNP [Advanced Practice Nurse] - Prescriptions: Lactobacillus Acidophilus [Acidophilus] 1 each PO BID #30 capsule Amoxicillin/Clavulanate [Augmentin] 875 mg PO BIDWM #24 tablet Insulin LISPRO [HumaLOG] 0 units SQ TIDAC #3 vial Insulin DETEMIR [Levemir Flextouch] 25 unit SQ BID #2 insuln.pen
[2018-07-01] MEDS: Insulin LISPRO 300 UNITS/3 ML VIAL SQ SCH (10:04)
[2018-07-01] MEDS: Pregabalin 75 MG CAPSULE PO SCH (10:04)
[2018-07-01] MEDS: Famotidine 20 MG TABLET PO SCH (10:04)
[2018-07-01] MEDS: Insulin DETEMIR 100 UNIT/ML X5UNITS SQ SCH (10:04)
[2018-07-01 10:06] VITALS: BP 114/72
== END 2018-07-01 11:15 | disposition home or self-care (01) ==
LOC: 3ANU 09:33 → EMEROOARM 09:33 → SUATTDRO 13:35 → 3ANU 14:10
PROVIDERS: ADMIT Internal Medicine Nephrology; ATTEND Family Medicine

== ENCOUNTER 2020-07-09 19:46 | Inpatient (IN) ==
[2020-07-09 20:50] LABS: Basophils % 0.2 %; Eosinophils % 0.1 %; Hematocrit 34.5 % (37.5-50.1); Hemoglobin 11.8 g/dL (12.9-16.9); Immature Granulocytes % 0.4 % (0-4); Lymphocytes # 0.8 K/mcL (0.6-4.6); Mean Corpuscular HGB Conc 34.2 g/dL (31.6-35.5); Mean Corpuscular Hemoglobin 28.9 pg (28.0-33.3); Mean Corpuscular Volume 84.6 fL (83.0-100.0); Mean Platelet Volume 9.7 fL (9.4-12.4); Monocytes % 6.1 %; Neutrophils # 14.5 K/mcL (1.6-8.9); Platelet Count 309 K/mcL (140-400); Red Blood Count 4.08 M/mcL (4.19-5.50); Red Cell Distribution Width 11.2 % (11.5-14.5); Segmented Neutrophils % 88.2 %; White Blood Count 16.5 K/mcL (4.3-11.1)
[2020-07-09 21:10] LABS: BUN/Creatinine Ratio 14 (6-26); Blood Urea Nitrogen 12 mg/dL (6-20); Calcium 8.8 mg/dL (8.6-10.3); Carbon Dioxide 25 mEq/L (23-29); Chloride 94 mEq/L (98-107); Glucose 434 mg/dL (70-105); Osmolality,Calculated 284 (280-300); Potassium 3.8 mEq/L (3.5-5.1); Sodium 128 mEq/L (136-145); eGFR For African Americans > 60 (> 60); eGFR For Non-African Americans > 60 (> 60)
[2020-07-09] MEDS ORDERED: 0.9 % Sodium Chloride 1,000 ML IVC ONE (23:18)
[2020-07-09] MEDS ORDERED: Pregabalin 75 MG CAPSULE PO ONE (23:18)
[2020-07-09] MEDS ORDERED: Insulin Regular, Human 100 UNIT/ML SUBQ ONE (23:20)
[2020-07-10 00:18] LABS: C-Reactive Protein 165 mg/L (Less than 10)
[2020-07-10] MEDS ORDERED: Ondansetron 4 MG/2 ML VIAL IVP PRN ×4 (01:20→19:47)
[2020-07-10] MEDS ORDERED: Ketorolac 30 MG/ML VIAL IVP PRN (01:20)
[2020-07-10] MEDS ORDERED: Naloxone 0.4 MG/ML INJ IVP PRN ×2 (01:20→19:47)
[2020-07-10] MEDS ORDERED: D5% in Water 1,000 ML IVC PRN ×2 (01:21→19:47)
[2020-07-10] MEDS ORDERED: Dextrose Gel 15 GM/37.5 ML TUBE PO PRN ×4 (01:21→19:47)
[2020-07-10] MEDS ORDERED: *HR* Dextrose 50 % in Water (Vial) 50 ML VIAL IVP PRN ×2 (01:21→19:47)
[2020-07-10] MEDS ORDERED: 0.9 % Sodium Chloride 1,000 ML IVC SCH (01:30)
[2020-07-10] MEDS ORDERED: Vancomycin 500 MG in 0.9 % Sodium Chloride Mini Bag 100 ML IVPB ONE (02:00)
[2020-07-10] MEDS ORDERED: Insulin DETEMIR 100 UNIT/ML X5UNITS SUBQ SCH (02:15)
[2020-07-10] MEDS: Insulin LISPRO 300 UNITS/3 ML VIAL SUBQ SCH ×4 (03:39→20:20)
[2020-07-10 06:16] LABS: Mean Corpuscular HGB Conc 33.7 g/dL (31.6-35.5); Mean Corpuscular Hemoglobin 28.9 pg (28.0-33.3); Mean Corpuscular Volume 85.7 fL (83.0-100.0); Mean Platelet Volume 9.5 fL (9.4-12.4); Platelet Count 257 K/mcL (140-400); Red Cell Distribution Width 11.1 % (11.5-14.5)
[2020-07-10 06:17] LABS: Hemoglobin 10.1 g/dL (12.9-16.9)
[2020-07-10 06:34] LABS: BUN/Creatinine Ratio 13 (6-26); Blood Urea Nitrogen 11 mg/dL (6-20); Calcium 8.6 mg/dL (8.6-10.3); Carbon Dioxide 29 mEq/L (23-29); Chloride 101 mEq/L (98-107); Glucose 173 mg/dL (70-105); Osmolality,Calculated 282 (280-300); Potassium 3.3 mEq/L (3.5-5.1); Sodium 134 mEq/L (136-145); eGFR For African Americans > 60 (> 60); eGFR For Non-African Americans > 60 (> 60)
[2020-07-10 07:29] LABS: Influenza A PCR Negative (Negative); Influenza B PCR Negative (Negative); Resp. Syncytial Virus PCR Negative (Negative)
[2020-07-10 07:35] LABS: SARS-CoV-2 by PCR (In House) Negative (Negative)
[2020-07-10] MEDS: Piperacillin/Tazobactam 3.375 GM in 0.9 % Sodium Chloride Mini Bag 100 ML IVPB SCH ×2 (10:41→17:44)
[2020-07-10 12:47] LABS: Estimated Average Glucose 235 mg/dl; Hemoglobin A1C 9.8 %
[2020-07-10] MEDS ORDERED: VANCOMYCIN IVPB SCH (15:00)
[2020-07-10] MEDS ORDERED: *HR* FentaNYL (PF) 100 MCG/2 ML VIAL ONE ×2 (16:01→17:40)
[2020-07-10] MEDS ORDERED: *HR* Propofol 200 MG/20 ML VIAL IVP ONE (16:02)
[2020-07-10] MEDS ORDERED: Ondansetron 4 MG/2 ML VIAL ONE (16:02)
[2020-07-10] MEDS ORDERED: Lidocaine -MPF 2% 2 ML VIAL ONE (16:02)
[2020-07-10] MEDS ORDERED: *HR* Midazolam HCl 2 MG/2 ML VIAL ONE (16:02)
[2020-07-10] MEDS ORDERED: Lidocaine 1% 0 ML ONE (16:20)
[2020-07-10] MEDS ORDERED: Bupivacaine-MPF 0.25% 10 ML VIAL ONE (16:20)
[2020-07-10] MEDS ORDERED: *HR* Meperidine 25 MG/ML SYRINGE IVP PRN ×2 (16:54→19:47)
[2020-07-10] MEDS ORDERED: *HR* HYDROmorphone PF 0.5 MG/0.5 ML SYRINGE IVP PRN ×2 (16:54→19:47)
[2020-07-10] MEDS ORDERED: Insulin LISPRO 300 UNITS/3 ML VIAL SUBQ SCH ×2 (17:00→21:00)
[2020-07-10] MEDS ORDERED: Pregabalin 75 MG CAPSULE PO ONE (19:47)
[2020-07-10] MEDS: *HR* Heparin 5,000 UNIT/ML VIAL SQ SCH (20:19)
[2020-07-10] MEDS: Insulin DETEMIR 100 UNIT/ML X5UNITS SUBQ SCH (20:27)
[2020-07-10] MEDS ORDERED: Acetaminophen IV 1,000 MG/100 ML BAG IVPB ONE (20:45)
[2020-07-10] MEDS: Ketorolac 30 MG/ML VIAL IVP PRN (20:48)
[2020-07-10] MEDS ORDERED: *HR* Heparin 5,000 UNIT/ML VIAL SQ SCH (22:00)
[2020-07-11] MEDS: Piperacillin/Tazobactam 3.375 GM in 0.9 % Sodium Chloride Mini Bag 100 ML IVPB SCH ×4 (00:50→23:20)
[2020-07-11] MEDS ORDERED: VANCOMYCIN IVPB SCH (03:00)
[2020-07-11] MEDS: Ketorolac 30 MG/ML VIAL IVP PRN ×3 (05:54→21:38)
[2020-07-11] MEDS: *HR* Heparin 5,000 UNIT/ML VIAL SQ SCH ×3 (05:55→21:26)
[2020-07-11] MEDS ORDERED: *HR* OxyCODONE Immed Rel 5 MG TABLET PO PRN (07:24)
[2020-07-11] MEDS ORDERED: Insulin LISPRO 300 UNITS/3 ML VIAL SUBQ SCH (08:00)
[2020-07-11 09:05] LABS: Basophils % 0.2 %; Eosinophils % 0.2 %; Hematocrit 31.2 % (37.5-50.1); Hemoglobin 10.7 g/dL (12.9-16.9); Immature Granulocytes % 0.5 % (0-4); Lymphocytes # 1.3 K/mcL (0.6-4.6); Lymphocytes % 11.9 %; Mean Corpuscular HGB Conc 34.3 g/dL (31.6-35.5); Mean Corpuscular Hemoglobin 29.1 pg (28.0-33.3); Mean Corpuscular Volume 84.8 fL (83.0-100.0); Mean Platelet Volume 9.5 fL (9.4-12.4); Monocytes # 0.7 K/mcL (0.0-1.3); Monocytes % 6.7 %; Neutrophils # 8.8 K/mcL (1.6-8.9); Platelet Count 278 K/mcL (140-400); Red Blood Count 3.68 M/mcL (4.19-5.50); Red Cell Distribution Width 11.3 % (11.5-14.5); Segmented Neutrophils % 80.5 %; White Blood Count 10.9 K/mcL (4.3-11.1)
[2020-07-11 09:24] LABS: BUN/Creatinine Ratio 16 (6-26); Blood Urea Nitrogen 11 mg/dL (6-20); Calcium 8.6 mg/dL (8.6-10.3); Carbon Dioxide 30 mEq/L (23-29); Chloride 100 mEq/L (98-107); Glucose 259 mg/dL (70-105); Osmolality,Calculated 288 (280-300); Potassium 3.9 mEq/L (3.5-5.1); Sodium 135 mEq/L (136-145); eGFR For African Americans > 60 (> 60); eGFR For Non-African Americans > 60 (> 60)
[2020-07-11] MEDS: Insulin LISPRO 300 UNITS/3 ML VIAL SUBQ SCH ×3 (12:29→21:28)
[2020-07-11] MEDS: Vancomycin 1,250 MG 1,250 MG/262.5 ML IV.SOLN IVPB SCH ×2 (16:30→23:20)
[2020-07-11] MEDS: *HR* OxyCODONE/APAP 5/325 TABLET PO PRN ×2 (16:30→23:38)
[2020-07-11] MEDS: Insulin DETEMIR 100 UNIT/ML X5UNITS SUBQ SCH (21:27)
[2020-07-12] MEDS ORDERED: Acetaminophen IV 1,000 MG/100 ML BAG IVPB ONE (04:12)
[2020-07-12] MEDS: *HR* Heparin 5,000 UNIT/ML VIAL SQ SCH ×3 (04:43→20:42)
[2020-07-12 05:40] LABS: Basophils % 0.6 %; Eosinophils # 0.1 K/mcL (0.0-0.6); Eosinophils % 1.8 %; Hematocrit 28.7 % (37.5-50.1); Hemoglobin 9.4 g/dL (12.9-16.9); Immature Granulocytes % 0.4 % (0-4); Lymphocytes # 2.6 K/mcL (0.6-4.6); Lymphocytes % 36.7 %; Mean Corpuscular HGB Conc 32.8 g/dL (31.6-35.5); Mean Corpuscular Hemoglobin 28.6 pg (28.0-33.3); Mean Corpuscular Volume 87.2 fL (83.0-100.0); Mean Platelet Volume 9.6 fL (9.4-12.4); Monocytes # 0.5 K/mcL (0.0-1.3); Monocytes % 7.4 %; Neutrophils # 3.8 K/mcL (1.6-8.9); Platelet Count 242 K/mcL (140-400); Red Blood Count 3.29 M/mcL (4.19-5.50); Red Cell Distribution Width 11.4 % (11.5-14.5); Segmented Neutrophils % 53.1 %; White Blood Count 7.1 K/mcL (4.3-11.1)
[2020-07-12] MEDS: *HR* OxyCODONE/APAP 5/325 TABLET PO PRN ×2 (05:54→20:45)
[2020-07-12 05:55] LABS: BUN/Creatinine Ratio 21 (6-26); Blood Urea Nitrogen 15 mg/dL (6-20); Carbon Dioxide 30 mEq/L (23-29); Chloride 101 mEq/L (98-107); Glucose 361 mg/dL (70-105); Osmolality,Calculated 291 (280-300); Potassium 3.7 mEq/L (3.5-5.1); Sodium 133 mEq/L (136-145); eGFR For African Americans > 60 (> 60); eGFR For Non-African Americans > 60 (> 60)
[2020-07-12] MEDS ORDERED: *HR* Midazolam HCl 2 MG/2 ML VIAL ONE (07:02)
[2020-07-12] MEDS ORDERED: *HR* Propofol 200 MG/20 ML VIAL IVP ONE ×3 (07:02→08:06)
[2020-07-12] MEDS ORDERED: *HR* FentaNYL (PF) 100 MCG/2 ML VIAL ONE (07:02)
[2020-07-12] MEDS ORDERED: Ondansetron 4 MG/2 ML VIAL ONE (07:03)
[2020-07-12] MEDS ORDERED: Lidocaine -MPF 2% 2 ML VIAL ONE (07:03)
[2020-07-12] MEDS ORDERED: *HR* HYDROmorphone PF 0.5 MG/0.5 ML SYRINGE IVP PRN (07:28)
[2020-07-12] MEDS: Piperacillin/Tazobactam 3.375 GM in 0.9 % Sodium Chloride Mini Bag 100 ML IVPB SCH ×2 (07:38→17:22)
[2020-07-12] MEDS: Vancomycin 1,250 MG 1,250 MG/262.5 ML IV.SOLN IVPB SCH (07:54)
[2020-07-12] MEDS ORDERED: EPHEDrine 50 MG/ML VIAL ONE (07:57)
[2020-07-12] MEDS: Insulin LISPRO 300 UNITS/3 ML VIAL SUBQ SCH ×4 (09:07→20:43)
[2020-07-12] MEDS: VANCOMYCIN IVPB SCH (17:46)
[2020-07-12] MEDS: Insulin DETEMIR 100 UNIT/ML X5UNITS SUBQ SCH (20:44)
[2020-07-13] MEDS: Piperacillin/Tazobactam 3.375 GM in 0.9 % Sodium Chloride Mini Bag 100 ML IVPB SCH ×3 (00:50→16:09)
[2020-07-13] MEDS: VANCOMYCIN IVPB SCH ×3 (00:50→17:01)
[2020-07-13] MEDS: *HR* OxyCODONE/APAP 5/325 TABLET PO PRN (05:07)
[2020-07-13] MEDS: *HR* Heparin 5,000 UNIT/ML VIAL SQ SCH ×3 (05:08→20:24)
[2020-07-13 06:05] LABS: Basophils % 0.4 %; Eosinophils # 0.1 K/mcL (0.0-0.6); Eosinophils % 0.8 %; Hematocrit 30.5 % (37.5-50.1); Hemoglobin 10.6 g/dL (12.9-16.9); Immature Granulocytes % 0.4 % (0-4); Lymphocytes # 2.5 K/mcL (0.6-4.6); Lymphocytes % 29.9 %; Mean Corpuscular HGB Conc 34.8 g/dL (31.6-35.5); Mean Corpuscular Hemoglobin 29.7 pg (28.0-33.3); Mean Corpuscular Volume 85.4 fL (83.0-100.0); Mean Platelet Volume 9.6 fL (9.4-12.4); Monocytes # 0.6 K/mcL (0.0-1.3); Neutrophils # 5.2 K/mcL (1.6-8.9); Platelet Count 298 K/mcL (140-400); Red Blood Count 3.57 M/mcL (4.19-5.50); Segmented Neutrophils % 61.5 %; White Blood Count 8.4 K/mcL (4.3-11.1)
[2020-07-13 06:23] LABS: BUN/Creatinine Ratio 13 (6-26); Blood Urea Nitrogen 10 mg/dL (6-20); Calcium 8.3 mg/dL (8.6-10.3); Carbon Dioxide 31 mEq/L (23-29); Chloride 98 mEq/L (98-107); Glucose 341 mg/dL (70-105); Osmolality,Calculated 291 (280-300); Platelet Estimate Normal (Normal); Potassium 3.6 mEq/L (3.5-5.1); Reactive Lymphocytes Present (Not Present); Sodium 134 mEq/L (136-145); eGFR For African Americans > 60 (> 60); eGFR For Non-African Americans > 60 (> 60)
[2020-07-13] MEDS ORDERED: Insulin DETEMIR 100 UNIT/ML X5UNITS SUBQ ONE (08:06)
[2020-07-13] MEDS: Pregabalin 75 MG CAPSULE PO SCH ×3 (08:59→20:11)
[2020-07-13] MEDS: Insulin LISPRO 300 UNITS/3 ML VIAL SUBQ SCH ×4 (09:08→21:43)
[2020-07-13] MEDS: *HR* OxyCODONE/APAP 10/325 TABLET PO PRN ×2 (11:51→20:11)
[2020-07-13] MEDS: Insulin DETEMIR 100 UNIT/ML X5UNITS SUBQ SCH (20:14)
[2020-07-14] MEDS: VANCOMYCIN IVPB SCH ×2 (01:09→09:04)
[2020-07-14] MEDS: Piperacillin/Tazobactam 3.375 GM in 0.9 % Sodium Chloride Mini Bag 100 ML IVPB SCH ×4 (01:09→23:17)
[2020-07-14 05:52] LABS: Basophils # 0.1 K/mcL (0.0-0.2); Basophils % 0.5 %; Eosinophils # 0.2 K/mcL (0.0-0.6); Eosinophils % 1.5 %; Hematocrit 34.2 % (37.5-50.1); Hemoglobin 11.4 g/dL (12.9-16.9); Immature Granulocytes % 0.8 % (0-4); Lymphocytes # 1.7 K/mcL (0.6-4.6); Mean Corpuscular HGB Conc 33.3 g/dL (31.6-35.5); Mean Corpuscular Hemoglobin 28.9 pg (28.0-33.3); Mean Corpuscular Volume 86.6 fL (83.0-100.0); Mean Platelet Volume 9.4 fL (9.4-12.4); Monocytes # 1.1 K/mcL (0.0-1.3); Monocytes % 9.4 %; Neutrophils # 8.2 K/mcL (1.6-8.9); Platelet Count 362 K/mcL (140-400); Red Blood Count 3.95 M/mcL (4.19-5.50); Red Cell Distribution Width 11.2 % (11.5-14.5); Segmented Neutrophils % 72.8 %; White Blood Count 11.3 K/mcL (4.3-11.1)
[2020-07-14 06:10] LABS: Calcium 8.8 mg/dL (8.6-10.3); Potassium 3.6 mEq/L (3.5-5.1)
[2020-07-14] MEDS: *HR* Heparin 5,000 UNIT/ML VIAL SQ SCH ×3 (06:19→21:05)
[2020-07-14] MEDS ORDERED: Insulin DETEMIR 100 UNIT/ML X5UNITS SUBQ ONE (07:44)
[2020-07-14] MEDS ORDERED: 0.9 % Sodium Chloride 1,000 ML IVC SCH (07:45)
[2020-07-14] MEDS: Pregabalin 75 MG CAPSULE PO SCH ×3 (08:52→20:53)
[2020-07-14] MEDS: Insulin LISPRO 300 UNITS/3 ML VIAL SUBQ SCH ×4 (08:58→21:04)
[2020-07-14] MEDS: *HR* OxyCODONE/APAP 10/325 TABLET PO PRN (15:30)
[2020-07-14] MEDS: Insulin DETEMIR 100 UNIT/ML X5UNITS SUBQ SCH (20:53)
[2020-07-15 00:50] LABS: Basophils # 0.1 K/mcL (0.0-0.2); Basophils % 0.5 %; Eosinophils # 0.2 K/mcL (0.0-0.6); Eosinophils % 2.1 %; Hematocrit 31.7 % (37.5-50.1); Hemoglobin 10.6 g/dL (12.9-16.9); Immature Granulocytes % 1.1 % (0-4); Lymphocytes # 2.1 K/mcL (0.6-4.6); Mean Corpuscular HGB Conc 33.4 g/dL (31.6-35.5); Mean Corpuscular Hemoglobin 28.9 pg (28.0-33.3); Mean Corpuscular Volume 86.4 fL (83.0-100.0); Monocytes # 0.9 K/mcL (0.0-1.3); Platelet Count 317 K/mcL (140-400); Red Blood Count 3.67 M/mcL (4.19-5.50); Red Cell Distribution Width 11.3 % (11.5-14.5); Segmented Neutrophils % 67.3 %; White Blood Count 10.4 K/mcL (4.3-11.1)
[2020-07-15 01:11] LABS: Calcium 8.4 mg/dL (8.6-10.3); Potassium 3.6 mEq/L (3.5-5.1)
[2020-07-15] MEDS: *HR* OxyCODONE/APAP 10/325 TABLET PO PRN ×3 (02:51→21:27)
[2020-07-15] MEDS: *HR* Heparin 5,000 UNIT/ML VIAL SQ SCH ×4 (05:40→23:15)
[2020-07-15] MEDS: Insulin LISPRO 300 UNITS/3 ML VIAL SUBQ SCH ×4 (08:03→21:35)
[2020-07-15] MEDS: Pregabalin 75 MG CAPSULE PO SCH (08:04)
[2020-07-15] MEDS: Piperacillin/Tazobactam 3.375 GM in 0.9 % Sodium Chloride Mini Bag 100 ML IVPB SCH (08:17)
[2020-07-15 11:01] LABS: Calcium 8.7 mg/dL (8.6-10.3); Potassium 3.5 mEq/L (3.5-5.1)
[2020-07-15 15:52] LABS: Bilirubin,Urine Negative (Negative); Blood,Urine Negative (Negative); Clarity,Urine Clear (Clear); Color,Urine Colorless (Yellow); Glucose,Urine (UA) Normal (Normal); Ketones,Urine Negative (Negative); Leukocyte Esterase,Urine Negative (Negative); Nitrite,Urine Negative (Negative); PH,Urine 6.5 pH Units (5.0-8.0); Protein,Urine Negative (Neg-Trace); Specific Gravity,Urine 1.006 (1.010-1.025); Urobilinogen,Urine Normal (Normal)
[2020-07-15] MEDS: metroNIDAZOLE 500 MG TABLET PO SCH ×2 (16:49→21:27)
[2020-07-15] MEDS: DAPTOmycin 500 MG in 0.9 % Sodium Chloride 100 ML IVPB SCH (16:50)
[2020-07-15 17:21] LABS: Creatine Kinase 30 Units/L (30-223)
[2020-07-15 18:05] LABS: C-Reactive Protein 51 mg/L (Less than 10)
[2020-07-15] MEDS ORDERED: Pregabalin 75 MG CAPSULE PO SCH (21:00)
[2020-07-15] MEDS: Pregabalin 50 MG CAPSULE PO SCH (21:27)
[2020-07-15] MEDS: Insulin DETEMIR 100 UNIT/ML X5UNITS SUBQ SCH (21:35)
[2020-07-16] MEDS: *HR* Heparin 5,000 UNIT/ML VIAL SQ SCH ×2 (04:42→14:40)
[2020-07-16 05:40] LABS: Basophils # 0.1 K/mcL (0.0-0.2); Basophils % 0.4 %; Eosinophils # 0.2 K/mcL (0.0-0.6); Eosinophils % 1.7 %; Hematocrit 32.5 % (37.5-50.1); Hemoglobin 10.8 g/dL (12.9-16.9); Lymphocytes # 1.6 K/mcL (0.6-4.6); Lymphocytes % 13.5 %; Mean Corpuscular HGB Conc 33.2 g/dL (31.6-35.5); Mean Corpuscular Hemoglobin 28.8 pg (28.0-33.3); Mean Corpuscular Volume 86.7 fL (83.0-100.0); Monocytes # 1.1 K/mcL (0.0-1.3); Monocytes % 9.2 %; Neutrophils # 8.9 K/mcL (1.6-8.9); Platelet Count 333 K/mcL (140-400); Red Blood Count 3.75 M/mcL (4.19-5.50); Red Cell Distribution Width 11.5 % (11.5-14.5); Segmented Neutrophils % 74.2 %; White Blood Count 11.9 K/mcL (4.3-11.1)
[2020-07-16 05:58] LABS: Calcium 8.8 mg/dL (8.6-10.3); Potassium 3.6 mEq/L (3.5-5.1)
[2020-07-16] MEDS: Insulin LISPRO 300 UNITS/3 ML VIAL SUBQ SCH ×2 (07:48→11:28)
[2020-07-16] MEDS: Pregabalin 50 MG CAPSULE PO SCH (07:48)
[2020-07-16] MEDS: metroNIDAZOLE 500 MG TABLET PO SCH ×2 (07:48→15:48)
[2020-07-16 10:56] VITALS: BP 129/80
[2020-07-16] MEDS: DAPTOmycin 500 MG in 0.9 % Sodium Chloride 100 ML IVPB SCH (15:48)
[2020-07-16] MEDS ORDERED: Lidocaine -MPF 1% 5 ML AMPUL INFILT ONE (15:49)
== END 2020-07-16 17:11 | disposition home health service (06) | DRG 853 ==
LOC: 3NENU 19:46 → EMEROOARM 19:46 → SUATTDRO 07-10 01:24 → 3NENU 07-10 03:21
PROVIDERS: ADMIT Internal Medicine; ATTEND Student in an Organized Health Care Education/Training Program